=== PATIENT | female | born 2005 | race Two or more races ===

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

== ENCOUNTER 2024-11-16 17:40 | Emergency (ER) | payer OTHER, SELFPAY ==
[2024-11-16 17:42] VITALS: BP 116/65; PULSE 97; RESP 18; TEMP 37; O2SAT 100; BMI 22.9
--- NOTE | 2024-11-16 17:42 | ED_ITS ---
HPI - General Adult General Chief complaint: Abdominal Pain Stated complaint: Cramping/Nauseas Time Seen by Provider: 11/16/24 18:54 History of Present Illness ED Provider: Christopher Knott MD HPI narrative: [age] year old female G-tube P2 4 months just stopped breast- feeding. Lower abdominal cramping this afternoon without vaginal bleeding or discharge no back pain no urinary symptoms passing flatus and stool easily. No fever no chills no prior ovarian pathology, PID cysts or torsion Related Data Previous Rx's ?Medication ?Instructions ?Recorded vitamins with calcium 1 tab PO DAILY #30 tabs 01/23/21 no.72-iron 27 mg-folic acid 1 mg tablet ( Vitamins Plus Low Iron) ondansetron 4 mg disintegrating 4 mg PO Q8H PRN nausea and 12/12/21 tablet vomiting #20 tabs Allergies Allergy/AdvReac Type Severity Reaction Status Date / Time No Known Allergies (No Known Allergy Verified 11/16/24 17:44 Allergies*) [facility] Past Medical History Medical History No known health problems Social History Social History Alcohol intake: never Patient Tobacco Use Status: Never used Tobacco Smoked in Last 30 Days: No Use of substances other than those prescribed or required for medical reasons: No Advance Directives: No Advance Directives Information Provided: No Patient : No Current occupational status: student Current occupation: senior in , taking classes at [employer] Sexual orientation: Straight/Heterosexual Gender identity: Female Physical Exam ED Exam Exam: EXAM: Gen: Alert, awake, well appearing, well hydrated. Head: Atraumatic Eyes: Anicteric, Normal conjunctiva. ENT: Moist mucosa, no pallor. ? Neck: Supple. Skin: ?No observable rash or bruising on exposed or examined skin Respiratory: Breathing comfortably, No distress.Clear to auscultation bilaterally, symmetric chest expansion, No wheeze, rales, ronchi. Cardiovascular: Regular rate and rhythm. No murmurs or rub. Well perfused periphery, warm extremities. No edema. ? Abdominal: Mild lower abdominal tenderness no rigidity Soft, no objective distension. No palpable masses or obvious organomegaly. ?No guarding, no rebound tenderness or other peritoneal findings. : No flank tenderness. Vital signs: See flowsheet Vital Signs: Vital Signs - 24 hr 11/16/24 17:42 11/16/24 19:10 11/16/24 20:15 Temperature 98.6 F 98.5 F 97.6 F Pulse Rate 97 87 86 Respiratory Rate 18 16 16 Blood Pressure 116/65 105/37 L 107/48 L Pulse Oximetry 100 98 98 Oxygen Delivery Method Room Air Room Air Room Air BMI result Body Mass Index 22.9 Course Course Course Narrative: This is a Rapid Medical Examination (RME) performed by Meet Leonard PA-C in triage. Full HPI, ROS, assessment and treatment plan per primary provider in the Main ED. Hx: 19 yo F here w/ lower abd cramping x few hours. no vaginal bleeding. no N/V. gave 4 mo ago, has not had her period yet. no urinary sx. Plan: labs, UA Medications Administered Discontinued Medications Generic Name Dose Route Start Last Admin Trade Name Freq PRN Reason Stop Dose Admin Naproxen 500 mg 11/16/24 19:51 11/16/24 20:04 Naproxen 500 Mg Tablet PO 11/16/24 19:52 500 mg ONCE ONE Administration Procedures Procedure Narrative Procedure Narrative: EMERGENCY ULTLRASOUND INTERPRETATION-Limited bit welder Uterus US [This study was ordered, performed, and interpreted by myself. The study reveals: Impression: Non gravid uterus with no free fluid. Limited adnexal view [Indication: Uterus: Anteverted anteflexed nongravid uterus mildly tender over the uterus no masses or lesions. Free Fluid: None visualized Adnexa: Limited view. Quant HCG: Performed by: Christopher Knott MD Images were stored CPT: 17640] Medical Decision Making Medical Decision Making MDM Narrative: Medical Decision Makin-year-old female with lower pelvic pain. Four months uncomplicated. No vaginal bleeding or discharge. No prior PID or ovarian pathology. She is mildly tender in the suprapubic region has no rigidity or peritoneal signs. No urinary symptoms to suggest UTI clinically. Labs: Non , no leukocytosis reassuring lab work Point of care ultrasound limited evaluation of the adnexa however no free fluid grossly normal-appearing uterus and vagina Preliminary Favored Differential Diagnosis: Nonspecific pelvic pain, pre menstrual cramp, fibroid, among additional considered etiologies Testing Interpreted Independently: ?See below for details Radiology or Lab testing Results Reviewed: ?See below for details Consults: ?See below for details Independent Historians/External Chart Reviews: ?See below for details Social Determinants of Health Impacting MDM/Planning: ?See below for details Lab Data MDM Lab Attestation statement: I reviewed the patient's lab results. 11/16/24 18:09 11/16/24 18:09 Labs: Lab Results 11/16/24 Range/Units 18:09 WBC 12.3 H (4.8-10.8) X10*3/uL RBC 4.41 (4.20-5.50) X10*6/uL Hgb 11.7 L (12.0-16.0) g/dl Hct 37.1 (37.0-47.0) % MCV 84.1 (80.0-98.0) fL MCH 26.5 L (27.0-33.0) pg MCHC 31.5 (31.0-35.0) g/dl RDW 14.5 (11.0-16.0) % Plt Count 300 (160-400) X10*3/uL MPV 9.1 L (9.4-12.3) fL Immature Gran % (Auto) 0.2 (0.0-0.4) % Neut % (Auto) 75.1 H (45-73) % Lymph % (Auto) 19.0 L (20-40) % [place] % (Auto) 4.8 (2-11) % Eos % (Auto) 0.6 (0-4) % Baso % (Auto) 0.3 (0-2) % Lymph # (Auto) 2.3 (1.2-4.9) X10*3/uL [place] # (Auto) 0.6 (0.1-1.2) X10*3/uL Eos # (Auto) 0.1 (0.0-0.4) X10*3/uL Baso # (Auto) 0.0 (0.0-0.2) X10*3/uL Abs Immat Gran (auto) 0.03 (0.00-0.03) X10*3/uL Absolute Neuts (auto) 9.2 H (2.0-8.3) x10*3/uL Absolute Nucleated RBC 0.000 (0.0-0.012) X10*3/uL Nucleated RBC % (auto) 0.0 (0.0-0.2) /100WBC Sodium 145 (135-145) mmol/L Potassium 3.2 L (3.3-5.1) mmol/L Chloride 112 H (96-108) mmol/L Carbon Dioxide 24 (22-29) mmol/L Anion Gap 12 (12-20) BUN 18 H (9-16) mg/dL Creatinine 0.71 (0.5-1.4) mg/dL Estim Creat Clear Calc 112.7 Estimated GFR > 60 Random Glucose 92 (60-115) mg/dL Calcium 8.8 D (8.4-10.2) mg/dL Magnesium 1.6 (1.6-2.6) mg/dL Total Bilirubin 0.3 (0.0-1.0) mg/dL AST 18 (5-31) U/L ALT 15 (0-31) U/L Alkaline Phosphatase 93 (39-117) U/L Total Protein 7.1 (6.5-8.0) g/dL Albumin 4.4 (3.5-5.0) g/dL Lipase 33 (8-78) U/L Urine Color Yellow Urine Appearance Clear Urine pH 5.5 (5.0-9.0) Ur Specific Elon >= 1.030 H (1.005-1.025) Urine Protein Negative (Neg-Trace) mg/dL Urine Glucose (UA) Negative (Negative) mg/dL Urine Ketones Trace (Negative) mg/dL Urine Blood Negative (Negative) Urine Nitrite Negative (Negative) Ur Leukocyte Esterase Trace H (Negative) Urine RBC 0-2 (0-2) /HPF Urine WBC 0-5 (0-5) /HPF Ur Squamous Epith Cells 0-2 (0-2) /HPF Urine Bacteria None Seen (None Seen) Hyaline Casts 0-2 (0-2) /LPF Urine Test NEGATIVE (NEGATIVE) Discharge Plan Discharge Clinical Impression: Pelvic pain Patient Disposition: Home, Self-Care Instructions: Pelvic Pain (ED) Additional Instructions: _ DISCHARGE DIAGNOSES: Lower pelvic pain unclear cause HISTORY OF PRESENTATION: ?Lower pelvic pain without vaginal bleeding discharge or fever EMERGENCY DEPARTMENT COURSE,TESTS, TREATMENTS: While in the ED today you had a reassuring bedside transabdominal pelvic ultrasound though this can not exclude everything there was no significant or emergent findings you are not and your lab work was reassuring DISCHARGE MEDICATIONS: ?[We have made no changes to your regular medication regimen] FOLLOW-UP: ?Call your primary or general physician soon as possible to discuss your symptoms, your ED visit and to discuss follow up plans Call your primary doctor follow up he call bit welder INSTRUCTIONS ?& RETURN PRECAUTIONS: If any symptoms change first call your primary physician, if it is after-hours your primary doctors office should have a provider precision agronomist you can speak with. If the symptoms are severe or very concerning to you then call 911 or return to the ED. Christopher Knott MD Emergency Physician [facility] Prescriptions: No Action ondansetron 4 mg tablet,disintegrating 4 mg PO Q8H PRN (Reason: nausea and vomiting) Qty: 20 0RF Vitamin Plus Low Iron 27 mg iron- 1 mg tablet 1 tab PO DAILY Qty: 30 11RF Interventions: ED Discharge Assessment Last Done: 11/16/24 20:15 Discharge Date/Time: 11/16/24 20:17 Print Language: Malaysian
--- NOTE | 2024-11-16 18:12 | MHC.EDTECH ---
Patient brought into triage area,labs and urine obtained and sent to lab.
[2024-11-16 18:15] LABS: MANUAL DIFF FLAG NO
[2024-11-16 18:16] LABS: Hematocrit 37.1 % (37.0-47.0); Hemoglobin 11.7 g/dl (12.0-16.0); Imm Gran Abs Auto 0.03 X10*3/uL (0.00-0.03); Imm Gran Pct Auto 0.2 % (0.0-0.4); Lymphocytes Absolute Auto 2.3 X10*3/uL (1.2-4.9); Mean Corpuscular HGB Conc 31.5 g/dl (31.0-35.0); Mean Corpuscular Hemoglobin 26.5 pg (27.0-33.0); Mean Corpuscular Volume 84.1 fL (80.0-98.0); NRBC Abs Auto 0.000 X10*3/uL (0.0-0.012); NRBC Pct Auto 0.0 /100WBC (0.0-0.2); Platelet Count 300 X10*3/uL (160-400); Red Blood Count 4.41 X10*6/uL (4.20-5.50); White Blood Count 12.3 X10*3/uL (4.8-10.8)
[2024-11-16 18:19] LABS: Appearance Urine Clear; Glucose Urine UA Negative (Negative); PH 5.5 (5.0-9.0); Specific Gravity - Urine >= 1.030 (1.005-1.025); UMIC TRIGGER UACC YES
[2024-11-16 18:20] LABS: UPreg QC Valid YES
[2024-11-16 18:35] LABS: Alanine Aminotransferase 15 U/L (0-31); Albumin Level 4.4 g/dL (3.5-5.0); Alkaline Phosphatase 93 U/L (39-117); Anion Gap 12 (12-20); Aspartate Amino Transferase 18 U/L (5-31); Blood Urea Nitrogen 18 mg/dL (9-16); Calcium 8.8 mg/dL (8.4-10.2); Carbon Dioxide 24 mmol/L (22-29); Chloride 112 mmol/L (96-108); Creatinine Clr Calc Pharmacy 112.7; Estimated Glomerular Filt Rate > 60; Lipase 33 U/L (8-78); Magnesium 1.6 mg/dL (1.6-2.6); Potassium 3.2 mmol/L (3.3-5.1); Sodium 145 mmol/L (135-145); Total Protein 7.1 g/dL (6.5-8.0)
--- OUTSIDE RECORDS SUMMARY | 2024-11-16 18:56 | XMS_ITS | Encounter Summary ---
Author Organization [facility] Address [address] [place] [phone] Phone Care Team Providers Care Blintze Roller Name Role Phone Jaycee Watts MD Primary Care Provider Encounter Details Date Type Department Care Team (Late st Contact Info) Description 05/30/2016 Documentation [facility] [place] [address] [place], [place] [phone] Family Medicine, Physician [address] [place], [place] [address] Social History Tobacco Use Types Packs/Day Years Used Date Smoking Tobacco: Never Assessed Comments Unknown Sex and Gender Information Value Date Recorded Sex Assigned at Not on file Legal Sex Female 5:16 PM EDT Gender Identity Not on file Sexual Orientation Not on file documented as of this encounter Plan of Treatment Not on file documented as of this encounter Visit Diagnoses Not on filedocumented in this encounter Care Teams Blintze Roller Relationship Specialty Start Date End Date Jaycee Watts MD [address] [place] [address] [place] [address] PCP - General Pediatrics 03/21/20 06/09/24 documented as of this encounter
--- OUTSIDE RECORDS SUMMARY | 2024-11-16 18:56 | XMS_ITS | Encounter Summary ---
Author Organization [facility] Address [address] [place] [phone] Phone Care Team Providers Care Director Of Category Management Name Role Phone Jaycee Watts MD Primary Care Provider Encounter Details Date Type Department Care Team (Late st Contact Info) Description 10/15/2012 Documentation [facility] [place] [address] [place] [address] Family Medicine, Physician [address], [place] [phone] Social History Tobacco Use Types Packs/Day Years [...] on filedocumented in this encounter Care Teams Director Of Category Management Relationship Specialty Start Date End Date Jaycee Watts MD [address] [place] [address] [place] [address] PCP - General Pediatrics 03/21/20 06/09/24 documented as of this encounter
--- OUTSIDE RECORDS SUMMARY | 2024-11-16 18:56 | XMS_ITS | Encounter Summary ---
Author Organization [facility] Address [address] [place] [phone] Phone Care Team Providers Care Straw Hat Brim Cutter Operator Name Role Phone Jaycee Watts MD Primary Care Provider [phone] Encounter Details Date Type Department Care Team (Late st Contact Info) Description 03/03/2012 Documentation [facility] [place] Medicine [address] [place] [address] Family Medicine, Physician [address] [place] [phone] Social History Tobacco Use Types Packs/Day Years [...] on filedocumented in this encounter Care Teams Straw Hat Brim Cutter Operator Relationship Specialty Start Date End Date Jaycee Watts MD [address] [place] [address] [place] [address] PCP - General Pediatrics 03/21/20 06/09/24 documented as of this encounter
--- OUTSIDE RECORDS SUMMARY | 2024-11-16 18:56 | XMS_ITS | Encounter Summary ---
Author Organization [facility] Address [address] [place] [phone] Phone Care Team Providers Care Financial Sales Associate Name Role Phone Jaycee Watts MD Primary Care Provider Encounter Details Date Type Department Care Team (Late st Contact Info) Description 07/21/2012 Documentation [facility] [place] [address] [place] [address] Family Medicine, Physician [address], [place] [phone] Social History Tobacco Use Types Packs/Day Years [...] on filedocumented in this encounter Care Teams Financial Sales Associate Relationship Specialty Start Date End Date Jaycee Watts MD [address] [place] [address] [place] [address] PCP - General Pediatrics 03/21/20 06/09/24 documented as of this encounter
--- OUTSIDE RECORDS SUMMARY | 2024-11-16 18:56 | XMS_ITS | Encounter Summary ---
Author Organization [facility] Address [address] [place] [address] Phone Care Team Providers Care Associate Automation Engineer Name Role Phone Jaycee Watts MD Primary Care Provider Encounter Details Date Type Department Care Team (Late st Contact Info) Description 06/11/2011 [place] [facility] [place] [address] [place] [address] Family Medicine, Physician [address] [phone] Social History Tobacco Use Types Packs/Day Years [...] on filedocumented in this encounter Care Teams Associate Automation Engineer Relationship Specialty Start Date End Date Jaycee Watts MD [address] [place] [address] [place] [address] PCP - General Pediatrics 03/21/20 06/09/24 documented as of this encounter
--- OUTSIDE RECORDS SUMMARY | 2024-11-16 18:56 | XMS_ITS | Encounter Summary ---
Author Organization [facility] Address [address] [place] [phone] Phone Care Team Providers Care Loom Cleaner Name Role Phone Jaycee Watts MD Primary Care Provider Encounter Details Date Type Department Care Team (Late st Contact Info) Description 07/31/2012 Documentation [facility] [place] [address] [place], [place] [phone] Family Medicine, Physician [address], [place] [address] Social History Tobacco Use Types Packs/Day Years [...] on filedocumented in this encounter Care Teams Loom Cleaner Relationship Specialty Start Date End Date Jaycee Watts MD [address] [place] [address] [place] [address] PCP - General Pediatrics 03/21/20 06/09/24 documented as of this encounter
--- OUTSIDE RECORDS SUMMARY | 2024-11-16 18:56 | XMS_ITS | Encounter Summary ---
Author Organization [facility] Address [address] [place] [phone] Phone Care Team Providers Care Global Program Director Name Role Phone Jaycee Watts MD Primary Care Provider Encounter Details Date Type Department Care Team (Late st Contact Info) Description 10/31/2016 Conversion Encounter [facility] [place] [address] [place] [address] Social History Tobacco Use Types Packs/Day Years Used Date Smoking Tobacco: Never Comments:Never smoker Comments Unknown Sex and Gender Information Value Date Recorded Sex Assigned at Not on file Legal Sex Female 5:16 PM EDT Gender Identity Not on file Sexual Orientation Not on file documented as of this encounter Plan of Treatment Not on file documented as of this encounter Visit Diagnoses Not on filedocumented in this encounter Care Teams Global Program Director Relationship Specialty Start Date End Date Jaycee Watts MD [address] [place] [address] PCP - General Pediatrics 03/21/20 06/09/24 documented as of this encounter
--- OUTSIDE RECORDS SUMMARY | 2024-11-16 18:56 | XMS_ITS | Clinical Summary ---
Author Organization [facility] Address [address] [place] [phone] Phone Care Team Providers Care Cigar Patcher Name Role Phone Unavailable Primary Care Provider Unavailabl e Allergies No known active allergies Medications PROAIR HFA 108 (90 BASE) MCG/ACT inhaler INHALE 2 PUFFS INTO THE LUNGS EVERY 4 TO 6 HOURS NEEDED 0 7 Active Spacer/Aero-Hol ding Chambers (OPTICHAMBER VANIA) misc OPTICHAMBER VANIA; inhale by Inhalation route use c MDI as directed.; 10/22/2016; Active 7 Active ibuprofen 200 MG tabletIndicatio ns:Tooth pain Take 2 tablets (400 mg total) by mouth every 6 (six) hours as needed for mild pain. 50 tablet 1 2 Active acetaminophen (Tylenol) 325 MG tablet Take 650 mg by mouth. 2 Active Etonogestrel (Nexplanon) 68 MG implant Inject 68 mg under the skin. 2 Active Active Problems Problem Noted Date Diagnosed Date Personal history of COVID-19 07/11/2020 Overview (07/11/2020): Covid illness June 2020, seen 07/11/20 for [facility]CC, not cleared because of positive 14 point screen - referred to Cardiology Need for case management follow-up 04/11/2020 Overview (04/11/2020): STD screen not done due to national shortage of tests Depression 04/11/2020 Overview (04/11/2020): Positive depression screening Mar 2020 - referred for counseling Inadequate community resources 04/11/2020 Learning difficulty 07/01/2012 Immunizations Immunization Administration Dates Next Due DTaP 5 10/26/2007, 6,11/23/2004,11/24,2003 H1N1 03/03/2009 HPV Vaccine 9 Valent 08/16/2015 HPV, Quadrivalent 08/12/2014 Hep A, ped/adol 08/12/2014,07/24/2010 Hep B, ped/adol 12/01/2007, 5,11/23/2004,05/24 Hib (HbOC) 11/23/2004,2003,2003 Hib (PRP-T) 08/06/2005 IPV 10/26/2007, 5,2003,08/11 Influenza Split 04/14/2012 Influenza, injectable, quadrivalent 03/21/2015 Influenza, injectable, quadr ivalent, preservative free 04/11/2020,11/29/2016,11/23/2015,04/14 Influenza, injectable, trivalent 03/03/2009,11/15 MMR 10/26/2007,12/13/2004 Meningococcal B Trumenba 05/15/2020 Meningococcal Conj (Menactra) MCV4P 04/11/2020,0 08/12/2014 Pneumococcal Conjugate 08/06/2005,11/23/2004,12/2003 Tdap 07/09/2021,08/12/2014 Varicella 10/26/2007,12/13/2004 Family History Medical History Relation Name Comments Diabetes Mother Maria Guadalupe Neuropathy Mother Maria Guadalupe Relation Name Status Comments Father Alive Father: Heart d isease Half-Brother Gaston Alive Half brother (M ): DOWN SYNDROME Maternal Grandfather Materna l grandfather: Diabetes mellitus, *Heart Disease, *CVA/Stroke Maternal Grandmother Materna l grandmother: Asthma, Diabetes mellitus Mother Maria Guadalupe Alive Mother: Depress ion Heart disease Other No family histo ry of *Sudden /[place] under 55, No family history of *Dental caries, No family history of *Thrombophilia Paternal Grandfather Alive Paterna l grandfather: Alive and well Paternal Grandmother Mirna l grandmother: Asthma Sister Sejal Alive Sister: Alive a nd well Social History Tobacco Use Types Packs/Day Years Used Date Smoking Tobacco: Never Comments:Never smoker Hunger/Food Answer Date Recorded In the last 12 months, did y ou or your family ever eat less than you felt you should because there wasn't enough money for food? No 04/11/2020 Stable Housing Answer Date Recorded Are you worried that in the next 2 months you may not have stable housing? No 04/11/2020 Transportation Concerns Answer Date Rec orded In the last 12 months, have you or your family ever had to go without healthcare because you didn't have a way to get there? No 04/11/2020 Hazards in Home Answer Date Recorded Think about the place you li ve. Do you have problems with any of the following? Pests (mice or roaches), mold, no/not working smoke detectors, water leaks, no window guards. No 2020 Financing Utilities Answer Date Recorde d In the last 12 months, has t he electric, gas, oil, or water company threatened to shut off your services in your home? Yes 04/11/2020 Safety at Home Answer Date Recorded Are you or your family worried about feeling saf e in your home? No 04/11/2020 Outside Support Answer Date Recorded Do you feel that you need mo re support from other people or programs to help you care for yourself or your family? No 04/11/2020 Understanding Health Concerns Answer Da te Recorded Do you need help understandi ng your or your child's healthcare needs (diagnosis, medications, plan, etc.)? No 04/11/2020 Financing Health Concerns Answer Date R ecorded In the last 12 months, was t here a time when your child needed to see a doctor or get medications or supplies but could not because of cost? No 04/11/2020 Missing School or Work Answer Date Ayden rded Did you or your child miss s chool or work because of a health problem that could have been avoided? No 04/11/2020 Comments No Sex and Gender Information Value Date Recorded Sex Assigned at Not on file Legal Sex Female 5:16 PM EDT Gender Identity Not on file Sexual Orientation Not on file Last Filed Vital Signs Vital Sign Reading Time Taken Comments Blood Pressure 99/63 09/05/2020 2:25 PM EDT Pulse 79 09/05/2020 2:25 PM EDT Temperature 37 C (98.6 F) 01/27/2023 4:24 PM EST Respiratory Rate - - Oxygen Saturation 99% 01/27/2023 4:24 PM EST Inhaled Oxygen Concentration - - Weight 59.9 kg (132 lb) 01/27/2023 4:24 PM EST Height 165.1 cm (5' 5 ) 04/11/2020 8:36 AM EST Body Mass Index - - Plan of Treatment Health Maintenance Due Date Last Done Comments Men B Vaccine (2 of 2 - Trum enba SCDM 2-dose series) 11/15/2020 05/15/2020 COVID-19 Vaccine ( - 2023-2 5 season) 2023 03/26/2022, 07/11/2021, 04/20/2021 Influenza Vaccines (#1) 2024 01/12/20 24, 04/11/2020, 11/29/2016, Additional history exists DTaP,Tdap,and Td Vaccines (9 - Td or Tdap) 04/19/2034 04/19/2024, 07/09/2021, 08/12/2014, Additional history exists HIB Vaccines Completed 08/06/2005, 11/2004, 2003, Additional history exists Pneumococcal Vaccine Completed 08/06/2005, 11/23/2004, 2003 IPV Vaccines Completed 10/26/2007, 11/16, 2003, Additional history exists MMR Vaccines Completed 10/26/2007, 12/13/2004 Varicella Vaccines Completed 10/26/2007, 12/13/2004 Hepatitis B Vaccines Completed 12/01/2007, 12/13/2004, 11/23/2004, Additional history exists Hepatitis A Vaccines Completed 08/12/2014, 07/25/19 HPV Vaccines Completed 08/16/2015, 08/12/2014 Meningococcal Vaccine Completed 04/11/2020, 015 Insurance [facility] NON PCC [facility] [place]: [address] [address] [place] [address] , [facility] [address] [place] [address] [facility] NON PCC
--- OUTSIDE RECORDS SUMMARY | 2024-11-16 18:56 | XMS_ITS | Encounter Summary ---
Author Organization [facility] Address [address] [place] [phone] Phone Care Team Providers Care Range Conservationist Name Role Phone Jaycee Watts MD Primary Care Provider [phone] Encounter Details Date Type Department Care Team (Late st Contact Info) Description 06/14/2016 Documentation [facility] [place] [facility] [place] [address] [place], [place] [phone] Family Medicine, Physician [address], [place] [phone] Social History Tobacco Use Types Packs/Day Years [...] on filedocumented in this encounter Care Teams Range Conservationist Relationship Specialty Start Date End Date Jaycee Watts MD [address] [place] [address] [place] [address] PCP - General Pediatrics 03/21/20 06/09/24 documented as of this encounter
--- OUTSIDE RECORDS SUMMARY | 2024-11-16 18:56 | XMS_ITS | Encounter Summary ---
Author Organization [facility] Address [address] [place] [phone] Phone Care Team Providers Care Mushroom Press Operator Name Role Phone Jaycee Watts MD Primary Care Provider Encounter Details Date Type Department Care Team (Late st Contact Info) Description 12/02/2009 [place] [facility] [place] [address] [place], [place] [phone] Family Medicine, Physician [address] [phone] Social History Tobacco Use Types Packs/Day Years [...] on filedocumented in this encounter Care Teams Mushroom Press Operator Relationship Specialty Start Date End Date Jaycee Watts MD [address] [place] [address] [place] [address] PCP - General Pediatrics 03/21/20 06/09/24 documented as of this encounter
--- OUTSIDE RECORDS SUMMARY | 2024-11-16 18:56 | XMS_ITS | Clinical Summary ---
Author Organization [facility] Address [address] [place] [address] Care Team Providers Care Handle Finisher Name Role Phone Unavailable Primary Care Provider Unavailabl e Social History Tobacco Use Types Packs/Day Years Used Date Smoking Tobacco: Never Assessed Comments Unknown Sex and Gender Information Value Date Recorded Sex Assigned at Not on file Legal Sex Female 12:59 AM EST Gender Identity Not on file Sexual Orientation Not on file Plan of Treatment Health Maintenance Due Date Last Done Comments Gonorrhea/Chlamydia Screening 2003 HPV Vaccines (1 - 3-dose series) 05/24/2018 Meningococcal B Vaccine (1 o f 2 - Standard) 2019 Annual Well Child Visit (3-2 1 years old) 02/17/2022 HIV Screening 02/17/2022 Hepatitis C Screening 02/17/2022 Social Influencers of Health Screening 02/17/2022 DTaP,Tdap,and Td Vaccines (1 - Tdap) 05/24/2022 Hepatitis B Vaccines (1 of 3 - 19+ 3-dose series) 05/24/2022 Depression Screening 03/17/2024 Cervical Cancer Screening: P ap Smear 05/24/2024 COVID-19 Vaccine (1 - 2023-2 5 season) 2024 Influenza Vaccine (#1) 2024 HIB Vaccines Aged Out No longer eligi ble based on patient's age to complete this topic Hepatitis A Vaccines Aged Out No long er eligible based on patient's age to complete this topic IPV Vaccines Aged Out No longer eligi ble based on patient's age to complete this topic MMR Vaccines Aged Out No longer eligi ble based on patient's age to complete this topic Meningococcal ACWY Vaccine Aged Out N o longer eligible based on patient's age to complete this topic Pneumococcal Vaccine: Pediat rics (0 to 5 Years) and At-Risk Patients (6 to 49 Years) Aged Out No longer eligible b ased on patient's age to complete this topic RSV Immunization Patients Un obinna 20 months Aged Out No longer eligible b ased on patient's age to complete this topic Varicella Vaccines Aged Out No longer eligible based on patient's age to complete this topic
[2024-11-16 19:10] VITALS: BP 105/37; PULSE 87; RESP 16; TEMP 36.9; O2SAT 98
[2024-11-16 20:15] VITALS: BP 107/48; PULSE 86; RESP 16; TEMP 36.4; O2SAT 98
== END 2024-11-16 20:17 | disposition home or self-care (01) ==
PROVIDERS: Physician Assistant Medical; Emergency Provider Emergency Medicine
DX: R10.2 Pelvic and perineal pain (principal); R10.30 Lower abdominal pain, unspecified
CPT/HCPCS: 36415; 76815; 80053; 81001; 81025; 83690; 83735; 85025; 99284